=== PATIENT | male | born 1940 ===

== ENCOUNTER 2017-02-28 07:30 | Day surgery (SDC) | payer MEDICARE ==
[2017-02-28] MEDS ORDERED: Lactated Ringer's 500 ML IV ONE (07:49)
[2017-02-28] MEDS ORDERED: Midazolam 2 MG/2 ML VIAL ONE (08:07)
[2017-02-28] MEDS ORDERED: Propofol 10 mg/ml Inj (20 ML) ONE (08:08)
[2017-02-28] MEDS ORDERED: ePHEDrine 50 mg/ml Inj ONE (08:12)
[2017-02-28 09:27] VITALS: BP 108/71; PULSE 71; RESP 12; TEMP 97.4; O2SAT 98
== END 2017-02-28 10:00 | disposition home or self-care (01) ==
LOC: H.ENDO 07:30
PROVIDERS: ATTEND Internal Medicine Gastroenterology
DX: Z12.11 Encounter for screening for malignant neoplasm of colon (principal); I10 Essential (primary) hypertension; E78.5 Hyperlipidemia, unspecified; D12.6 Benign neoplasm of colon, unspecified; K64.8 Other hemorrhoids; K57.30 Diverticulosis of large intestine without perforation or abscess without bleeding
CPT/HCPCS: 45384; 88305; J2001; J2250; J2704; J7120